=== PATIENT | female | born 1940 | race Caucasian/White ===

== ENCOUNTER → 2017-07-12 | Outpatient (CLI) | payer OTHER | LOC: FCPNEURO 20:30 | PROVIDERS: ATTEND Psychiatry & Neurology Sleep Medicine | DX: G47.31 Primary central sleep apnea (principal) ==

== ENCOUNTER → 2018-04-01 | Outpatient (CLI) | payer OTHER | LOC: FCPNEURO 20:00 | PROVIDERS: ATTEND Psychiatry & Neurology Sleep Medicine | DX: G47.33 Obstructive sleep apnea (adult) (pediatric) (principal) ==